=== PATIENT | female | born 1980 | race Caucasian/White ===

== ENCOUNTER 2017-12-02 10:39 | Emergency (ER) | END 2017-12-02 15:16 | disposition home or self-care (01) ==

== ENCOUNTER 2018-12-07 12:44 | Emergency (ER) | payer OTHER ==
[~2018-12-07] VITALS: Ht 157.5 cm; Wt 90.3 kg
[~2018-12-07 12:44] MED LIST: CIPR500T4 PO; DIPH1TAB PO; METF500T24 PO; MTF1000T PO; ONDA4TAB14 PO
[2018-12-07 12:47] VITALS: BP 137/82; Ht 157.5 cm; Wt 90.3 kg
[2018-12-07] MEDS ORDERED: ONDANSETRON 4 MG INJ IV STA (14:54)
[2018-12-07] MEDS ORDERED: FAMOTIDINE 20 MG INJ IV STA (14:54)
[2018-12-07] MEDS ORDERED: SOD CHLORIDE 0.9% 1,000 ML IV STA (14:54)
[2018-12-07] MEDS ORDERED: morphine 2 MG INJ IV STA (14:54)
--- NOTE | 2018-12-07 14:56 | ERD ---
ER Documentation Chief Complaint Chief Complaint abd pain , diarrhea , painful urination x 3 days HPI 38-year-old female with history of diabetes, presents to the emergency department, complaining of abdominal pain, for 3 days, described as colicky, intermittent, 5/10, associated with nausea and vomiting and nonbloody, nonmucous diarrhea, the patient also reports urinary frequency with dysuria. ROS All systems reviewed and are negative except as per history of present illness. Medications Home Meds Active Scripts Ondansetron Hcl* (Zofran*) 4 Mg Tablet, 4 MG PO Q8H PRN for NAUSEA AND/OR VOMITING, #12 TAB Prov:RACHEL GALINDO MD 12/07/18 Hydrocodone/Acetaminophen ([place] 5-325 Tablet) 1 Each Tablet, 1 TAB PO BID PRN for PAIN, #8 TAB Prov:RACHEL GALINDO MD 12/07/18 Ciprofloxacin Hcl* (Ciprofloxacin Hcl*) 250 Mg Tablet, 250 MG PO BID, #14 TAB Prov:RACHEL GALINDO MD 12/07/18 Ciprofloxacin Hcl* (Ciprofloxacin Hcl*) 500 Mg Tablet, 500 MG PO BID for 5 Days, TAB Prov:ALEXANDRA HOOKS DO 12/02/17 Diphenoxylate HCl/Atropine (Lomotil 2.5-0.025 mg Tablet) 1 Each Tablet, 1 TAB PO QID PRN for DIARRHEA, #10 TAB Prov:ALEXANDRA HOOKS DO 12/02/17 Ondansetron (Ondansetron Odt) 4 Mg Tab.rapdis, 4 MG PO Q6H PRN for NAUSEA AND/OR VOMITING, #10 TAB Prov:ALEXANDRA HOOKS DO 12/02/17 Metformin* (Glucophage*) 1,000 Mg Tablet, 1000 MG PO BID, #60 TAB Prov:ALEXANDRA HOOKS DO 12/02/17 Reported Medications Metformin Hcl* (Metformin Hcl*) 500 Mg Tablet, 500 MG PO WITH BREAKFAST DINNE, #60 TAB 12/02/17 Allergies Allergies: Coded Allergies: No Known Allergy (Unverified , 12/02/17) PMhx/Soc History of Surgery: Yes () Anesthesia Reaction: No Hx Neurological Disorder: No Hx Respiratory Disorders: No Hx Cardiac Disorders: No Hx Psychiatric Problems: No Hx Miscellaneous Medical Probl: Yes (DM) Hx Alcohol Use: No Hx Substance Use: No Hx Tobacco Use: No Smoking Status: Never smoker FmHx Family History: diabetes (Mother and sister), coronary disease (Mother and father of [place]) Physical Exam Vitals Vital Signs Date Temp Pulse Resp B/P (MAP) Pulse Ox O2 O2 Flow FiO2 Time Delivery Rate 12/07/18 98.2 96 20 98 Room Air 17:33 12/07/18 100.2 109 16 137/82 96 12:47 (100) Physical Exam Const: No acute distress Head: Atraumatic Eyes: Normal Conjunctiva ENT: Normal External Ears, Nose and Mouth. Neck: Full range of motion. No meningismus. Resp: Clear to auscultation bilaterally Cardio: Regular rate and rhythm, no murmurs Abd: Soft, non tender, non distended. Normal bowel sounds Skin: No petechiae or rashes Back: No midline or flank tenderness Ext: No cyanosis, or edema Neur: Awake and alert Psych: Normal Mood and Affect Result Diagram: 12/07/18 1520 12/07/18 1520 Results 24 hrs Laboratory Tests Test 12/07/18 15:20 White Blood Count 9.6 10^3/ul Red Blood Count 4.96 10^6/ul Hemoglobin 14.0 g/dl Hematocrit 41.0 % Mean Corpuscular Volume 82.7 fl Mean Corpuscular Hemoglobin 28.2 pg Mean Corpuscular Hemoglobin Concent 34.1 g/dl Red Cell Distribution Width 13.2 % Platelet Count 216 10^3/UL Mean Platelet Volume 9.6 fl Immature Granulocytes % 0.400 % Neutrophils % 74.8 % Lymphocytes % 17.5 % Monocytes % 6.7 % Eosinophils % 0.3 % Basophils % 0.3 % Nucleated Red Blood Cells % 0.0 /100WBC Immature Granulocytes # 0.040 10^3/ul Neutrophils # 7.1 10^3/ul Lymphocytes # 1.7 10^3/ul Monocytes # 0.6 10^3/ul Eosinophils # 0.0 10^3/ul Basophils # 0.0 10^3/ul Nucleated Red Blood Cells # 0.0 10^3/ul Urine Color NIKHIL Urine Clarity CLOUDY Urine pH 5.0 Urine Specific [place] 1.038 Urine Ketones 1+ mg/dL Urine Nitrite NEGATIVE mg/dL Urine Bilirubin NEGATIVE mg/dL Urine Urobilinogen NEGATIVE mg/dL Urine Leukocyte Esterase 1+ Eleni/ul Urine Microscopic RBC > 182 /HPF Urine Microscopic WBC 117 /HPF Urine Squamous Epithelial Cells FEW /HPF Urine Bacteria FEW /HPF Urine Mucus MANY /HPF Urine Hemoglobin 3+ mg/dL Urine Glucose 3+ mg/dL Urine Total Protein 2+ mg/dl Sodium Level 137 mmol/L Potassium Level 3.6 mmol/L Chloride Level 102 mmol/L Carbon Dioxide Level 24 mmol/L Anion Gap 11 Blood Urea Nitrogen 11 mg/dl Creatinine 0.28 mg/dl Est Glomerular Filtrat Rate mL/min > 60 mL/min Glucose Level 287 mg/dl Calcium Level 8.9 mg/dl Total Bilirubin 1.4 mg/dl Direct Bilirubin 0.00 mg/dl Indirect Bilirubin 1.4 mg/dl Aspartate Amino Transf (AST/SGOT) 29 IU/L Alanine Aminotransferase (ALT/SGPT) 24 IU/L Alkaline Phosphatase 152 IU/L Total Protein 7.4 g/dl Albumin 4.1 g/dl Globulin 3.30 g/dl Albumin/Globulin Ratio 1.24 Lipase 65 U/L Current Medications Medications Dose Sig/Juan M Start Time Status Last (Trade) Ordered Route PRN Stop Time Admin Dose Reason Admin Sodium 1,000 ml @ Q1H STAT 12/07/18 DC 12/07/18 Chloride 1,000 mls/hr IV 14:54 12/07/18 15:07 15:53 Morphine 1 mg ONCE STAT 12/07/18 DC 12/07/18 Sulfate IV 14:54 12/07/18 15:08 (morphine) 15:03 Ondansetron 4 mg ONCE STAT 12/07/18 DC 12/07/18 HCl (Zofran IV 14:54 12/07/18 15:08 Inj) 15:03 Famotidine 20 mg ONCE STAT 12/07/18 DC 12/07/18 (Pepcid Iv) IV 14:54 12/07/18 15:08 15:02 Ceftriaxone 50 ml @ ONCE ONCE 12/07/18 DC 12/07/18 Sodium 100 mls/hr IVPB 16:00 12/07/18 16:05 16:29 Procedures/MDM Differential diagnosis include but not limited to: UTI, colitis, gastroenteritis, kidney stones, irritable bowel syndrome, inflammatory bowel syndrome, malabsorption syndrome, cholelithiasis, food intolerance, medication side effect, pancreatitis, diverticulitis, bowel obstruction. Low suspicion for acute abdomen Physical examination and clinical presentation consistent most likely with urinary tract infection. During the ED course the patient remained stable, no new complaints. The patient received treatment with IV fluids and IV medications presenting overall improvement of the symptoms. Results and clinical impression discussed with patient who agrees with management. The patient is stable to be treated outpatient and will be discharged home, some side effects of prescribed medications (headache, rash, nausea, vomiting, diarrhea, drowsiness, habituation, bleeding, hypertension, interactions with other medications) were reviewed. The patient was instructed to follow up with the primary care provider in the next 48h. If symptoms persist, worsen or new symptoms develop, then patient should return to the ED immediately. Instructions explained and given directly by me to the patient with acknowledgment and demonstrated understanding. Disclaimer: Inadvertent spelling and grammatical errors are likely due to EHR/dictation software use and do not reflect on the overall quality of patient care. Also, please note that the electronic time recorded on this note does not necessarily reflect the actual time of the patient encounter. Departure Diagnosis: Primary Impression: Urinary tract infection Condition: Stable Additional Instructions: Thank you very much for allowing us to participate in your care. Your health and safety is our top priority at [facility]. The evaluation in the emergency department has been done to rule out an acute emergency, therefore, chronic conditions like malignancy or other diseases have not been evaluated; therefore, you need to follow up with a primary care provider in the next 48h. If symptoms persist, worsen or new symptoms develop, then patient should return to the ED immediately. Call your primary care doctor TOMORROW for an appointment during the next 2-4 days and bring all the information provided. Have prescriptions filled and follow precisely the directions on the label. If the symptoms get worse and your provider is unavailable, return to the Emergency Department immediately. RACHEL GALINDO MD December 07, 2018 14:56
[2018-12-07] MEDS ORDERED: CEFTRIAXONE 1 GM/50 ML (PMX) 50 ML IVPB ONE (16:00)
[2018-12-07] MEDS ORDERED: HYDR-4011 PO (16:57)
[2018-12-07] MEDS ORDERED: CIPR-193 PO (16:57)
[2018-12-07] MEDS ORDERED: ONDA4TAB8 PO (16:57)
[2018-12-07 17:33] VITALS: PULSE 96; RESP 20
== END 2018-12-07 17:40 | disposition home or self-care (01) ==
LOC: FTE 12:44
DX: N39.0 Urinary tract infection, site not specified (principal); E11.9 Type 2 diabetes mellitus without complications; Z79.84 Long term (current) use of oral hypoglycemic drugs
CPT/HCPCS: 36415; 80053; 81001; 83690; 85025; 96374; 96375; J0696; J2270; J2405; J7030; Z7502; Z7610